=== PATIENT | female | born 1945 | race Caucasian/White ===

== ENCOUNTER → 2019-02-18 | Day surgery (SDC) | payer OTHER, MEDICARE ==
--- NOTE | 2019-02-21 14:10 | OP ---
DATE OF OPERATION: 02/18/2019 PREOPERATIVE DIAGNOSIS: Left breast mass 2 o'clock, 8 cm from the nipple. POSTOPERATIVE DIAGNOSIS: Left breast mass 2 o'clock, 8 cm from the nipple. PROCEDURE: Left ultrasound-guided core biopsy with clip placement. ANESTHESIA: Local. ATTENDING SURGEON: Jered Trivedi MD ESTIMATED BLOOD LOSS: Minimal. COMPLICATIONS: None. DESCRIPTION OF PROCEDURE: The patient was made aware of the risks and benefits of the procedure and consented. She was placed in a supine position. Under sterile conditions with 1% lidocaine for local anesthesia, a small arlyn was made in the skin. Using a 10-gauge suction biopsy device via lateral approach under ultrasound guidance, 6 cores were obtained and submitted to Pathology. Likewise, under ultrasound guidance, a U-shaped clip was placed into the biopsy region well tolerated by patient. Steri-Strip and a sterile bandage was applied. We will contact her with results. JERED TRIVEDI M.D. [id number]
--- NOTE | 2019-02-21 15:23 | PATH ---
Surgical Pathology Report Patient Name: MANUELA LIZARRAGA [facility]. Rec. #: [id number] /Age/Gender: 1945 (Age: 73) / F Account: [id number] Location: [facility] Taken: 02/18/2019 Received: 02/18/2019 Reported: 02/21/2019 Physicians: Jered Trivedi M.D. Specimen(s) Received LEFT BREAST CORE BIOPSY 2:00 8CM FN Clinical History Left breast biopsy Final Diagnosis Breast, left, 2:00 8 cm FN, core biopsy: Invasive ductal carcinoma, poorly differentiated, measuring at least 8 mm in greatest dimension In this material. (See note) Note: The carcinoma shows strong membranous positivity for E-Cadherin (performed at [facility]), which supports ductal phenotype. Results of ER and CA studies performed at [facility] are as follows: ER (clone [id number] mouse monoclonal antibody by [employer]): 0% nuclear staining (Negative). CA (clone16 mouse monoclonal antibody by [employer]): 0 % nuclear staining (Negative). Results of Her2 & Ki67 studies will be reported separately in an addendum. Positive and negative controls (internal if applicable) show appropriate results. Formalin fixation and cold ischemic times are within current ASCO/CAP recommendations for ER, CA and Her2 testing. Electronically Signed Cris Colin M.D. Addendum Reported: 02/22/2019 Addendum Diagnosis Results of Her2 (IHC) & Ki-67 studies performed at [place], [place] ([id number]) are as follows: Her2 IHC (EP3 from [employer], formerly known as [id number], using [employer] Polymer Refine detection kit): 0 (negative). Ki-67: ~60% (high proliferative index). Positive and negative controls (internal if applicable) show appropriate results. Cris Colin M.D. Gross Description Received in formalin labeled "left breast biopsy 2:00, 8 cmfn," is a 2.0 x 1.7 x 0.3 cm aggregate of multiple goddard-yellow, irregular to cylindrical portions of fibroadipose tissue. The formalin is filtered and the specimen is entirely submitted in one cassette. Time to formalin fixation: not given (presumed immediate) Total formalin fixation time: Approximately 6 hours /02/18/2019 [facility]02/18/2019
== END | disposition home or self-care (01) ==
LOC: FRADUS-SUR 10:38
PROVIDERS: ATTEND Surgery Surgical Oncology
PROC: 0HBU3ZX Excision of Left Breast, Percutaneous Approach, Diagnostic (ICD-10-PCS; principal; 2019-02-18)
DX: C50.412 Malignant neoplasm of upper-outer quadrant of left female breast (principal); Z17.1 Estrogen receptor negative status [ER-]; N63.21 Unspecified lump in the left breast, upper outer quadrant
CPT/HCPCS: 19083; 87899; 88305-TC; 88342-TC; A4648

== ENCOUNTER → 2019-02-28 | Day surgery (SDC) | payer OTHER, MEDICARE ==
--- NOTE | 2019-03-01 21:14 | OP ---
DATE OF OPERATION: 02/28/2019 PREOPERATIVE DIAGNOSIS: Left breast mass, 2 o'clock, 2 cm from the nipple. POSTOPERATIVE DIAGNOSIS: Left breast mass, 2 o'clock, 2 cm from the nipple. PROCEDURE: Left ultrasound-guided core biopsy with bowtie clip placement. ANESTHESIA: Local. ATTENDING SURGEON: Jered Trivedi MD ESTIMATED BLOOD LOSS: Minimal. COMPLICATIONS: None. PROCEDURE: Patient was made aware of the risks and benefits of the procedure and consented. She was placed in the supine position. Under sterile conditions, with 1% lidocaine for local anesthesia, a small arlyn was made in the skin. Using a 10-gauge suction biopsy device via lateral approach under ultrasound guidance, multiple cores were obtained and submitted to Pathology. Likewise under ultrasound guidance, a bowtie clip was placed into the biopsy region. Well tolerated by patient. Steri-Strip and sterile bandage was applied. Will contact her with the results. JERED TRIVEDI M.D. [id number]
--- NOTE | 2019-03-02 14:20 | PATH ---
Surgical Pathology Report Patient Name: MANUELA LIZARRAGA [facility]. Rec. #: [id number] /Age/Gender: 1945 (Age: 73) / F Account: [id number] Location: Taken: 02/28/2019 Received: 02/28/2019 Reported: 03/02/2019 Physicians: Jered Trivedi M.D. Specimen(s) Received LEFT BREAST CORE BIOPSY 2:00 2 CM FN Clinical History Nonpalpable lesion Ultrasound findings: Suspicious Final Diagnosis BREAST, LEFT, 2:00, 2 CM FN: CORE BIOPSY: BENIGN BREAST PARENCHYMA WITH STROMAL FIBROSIS AND RARE MICROCALCIFICATIONS. DEEPER LEVELS HAVE BEEN EXAMINED. Electronically Signed Cleopatra Lorenzo M.D. Gross Description Received in formalin labeled "left breast biopsy 2:00, 2cmfn," is a 1.5 x 1.0 x 0.3 cm aggregate of multiple goddard-yellow, irregular to cylindrical portions of fibroadipose tissue. The formalin is filtered and the specimen is entirely submitted in one cassette. Total formalin fixation time: Approximately 6 hours 03/01/201903/01/2019
== END | disposition home or self-care (01) ==
LOC: FRADUS-SUR 13:22
PROVIDERS: ATTEND Surgery Surgical Oncology
PROC: 0HBU3ZX Excision of Left Breast, Percutaneous Approach, Diagnostic (ICD-10-PCS; principal; 2019-02-28)
DX: D24.2 Benign neoplasm of left breast (principal)
CPT/HCPCS: 19083; 87899; 88305-TC; A4648